=== PATIENT | female | born 1985 | race Caucasian/White ===

== ENCOUNTER 2021-04-08 22:52 | Emergency (ER) | payer OTHER ==
[~2021-04-08] VITALS: Ht 175.3 cm; Wt 81.8 kg
[2021-04-08] MEDS ORDERED: ACETAMINOPHEN 500 MG TABLET PO ONE (23:30)
[2021-04-08] MEDS ORDERED: AMOX TR/POT CLAV 875 MG/125 MG TABLET PO ONE (23:30)
[2021-04-08 23:40] VITALS: BP 127/88
== END 2021-04-09 01:30 | disposition home or self-care (01) ==
LOC: EMS 22:56
DX: K08.89 Other specified disorders of teeth and supporting structures (principal); F17.210 Nicotine dependence, cigarettes, uncomplicated
CPT/HCPCS: 99283

== ENCOUNTER 2021-10-25 04:14 | Emergency (ER) | payer OTHER ==
[~2021-10-25] VITALS: Ht 175.3 cm; Wt 91.0 kg
[2021-10-25] MEDS ORDERED: LIDOCAINE 1%/EPI 1:200,000/PF 30 ML VIAL SQ ONE (04:30)
[2021-10-25] MEDS ORDERED: BACITRACIN 0.9 GM PACKET OINTMENT TP ONE (05:30)
[2021-10-25 05:54] VITALS: BP 140/95
== END 2021-10-25 05:54 | disposition home or self-care (01) ==
LOC: EMS 04:15
DX: S61.411A Laceration without foreign body of right hand, initial encounter (principal); F10.20 Alcohol dependence, uncomplicated; F17.210 Nicotine dependence, cigarettes, uncomplicated; W26.8XXA Contact with other sharp object(s), not elsewhere classified, initial encounter; Y93.89 Activity, other specified; Y92.89 Other specified places as the place of occurrence of the external cause; Y99.8 Other external cause status
CPT/HCPCS: 99282; 12002; J3490

== ENCOUNTER 2021-12-21 23:17 | Emergency (ER) | payer OTHER ==
[~2021-12-21] VITALS: Ht 175.3 cm; Wt 95.5 kg
[2021-12-21 23:18] VITALS: BP 152/99
== END 2021-12-21 23:38 | disposition left against medical advice (07) ==
LOC: EMS 23:18
DX: Z53.21 Procedure and treatment not carried out due to patient leaving prior to being seen by health care provider (principal)

== ENCOUNTER 2022-08-06 16:35 | Emergency (ER) | payer OTHER ==
[~2022-08-06] VITALS: Ht 175.3 cm; Wt 90.9 kg
[2022-08-06] MEDS ORDERED: IBUP-45 PO (16:40)
[2022-08-06] MEDS ORDERED: ONDA-104 PO (16:40)
[2022-08-06 16:41] VITALS: BP 173/106
== END 2022-08-06 18:16 | disposition left against medical advice (07) ==
LOC: EMS 17:05
DX: Z53.21 Procedure and treatment not carried out due to patient leaving prior to being seen by health care provider (principal)
CPT/HCPCS: 99281; Z7502

== ENCOUNTER 2023-01-05 00:03 | Emergency (ER) | payer OTHER ==
[~2023-01-05] VITALS: Ht 175.3 cm; Wt 100.0 kg
[~2023-01-05 00:03] MED LIST: IBUP-45 PO; ONDA-104 PO
[2023-01-05 00:12] VITALS: TEMP 99.3
[2023-01-05 02:39] VITALS: BP 146/96; PULSE 98; RESP 15
[2023-01-05] MEDS ORDERED: ACET-66 PO (20:15)
[2023-01-05] MEDS ORDERED: DOXY-354 PO (20:15)
[2023-01-05] MEDS ORDERED: CEPH-558 PO (20:15)
== END 2023-01-05 04:05 | disposition left against medical advice (07) ==
LOC: EMS 00:03
DX: R30.9 Painful micturition, unspecified (principal); Z53.21 Procedure and treatment not carried out due to patient leaving prior to being seen by health care provider
CPT/HCPCS: 99281; Z7502

== ENCOUNTER 2023-01-05 14:40 | Emergency (ER) | payer OTHER ==
[~2023-01-05] VITALS: Ht 175.3 cm; Wt 90.9 kg
[2023-01-05] MEDS ORDERED: IOHEXOL 9 MG/ML 500 ML BOTTLE PO ONE ×2 (15:15)
[2023-01-05 15:35] LABS: EOSINOPHILS % (AUTO) 1.4 % (1.0-6.0); HEMATOCRIT 41.1 % (36-46); HEMOGLOBIN 13.5 g/dL (12.0-16.0); LYMPHOCYTES # (AUTO) 1.1 K/uL (1.0-4.8); LYMPHOCYTES % (AUTO) 34.4 % (22.0-44.0); MEAN CORPUSCULAR HEMOGLOBIN 31.1 pg (26.0-34.0); MEAN CORPUSCULAR HGB CONC 32.9 G/dL (31.0-37.0); MEAN CORPUSCULAR VOLUME 94 fL (80-100); MONOCYTES # (AUTO) 0.3 K/uL (0.1-1.0); MONOCYTES % (AUTO) 8.6 % (2.0-9.0); NEUTROPHILS # (AUTO) 1.6 K/uL (1.8-7.7); NEUTROPHILS % (AUTO) 53.6 % (40.0-70.0); PLATELET COUNT (AUTO) 231 K/uL (150-450); RED BLOOD CELL COUNT(AUTO) 4.35 MIL/uL (4.00-5.20); RED CELL DISTRIBUTION WIDTH 14.9 % (11.5-14.5); WHITE BLOOD COUNT (AUTO) 3.1 K/uL (4.5-11.0)
[2023-01-05 15:46] LABS: ANION GAP 10 mmol/L (8-16); CALCIUM, TOTAL 8.8 mg/dL (8.8-10.5); CARBON DIOXIDE 25 mmol/L (22-29); CHLORIDE 101 mmol/L (98-107); GLOMERULAR FILTR. RATE CALC > 60 mL/min (>60); GLUCOSE,RANDOM 100 mg/dL (70-110); POTASSIUM 3.4 mmol/L (3.5-5.1); SODIUM SERUM 136 mmol/L (136-145); UREA NITROGEN, BLOOD 8 mg/dL (7-18)
[2023-01-05 15:52] LABS: ALANINE AMINOTRANSFERASE 167 U/L (12-78); ALBUMIN 3.6 g/dL (3.4-5.0); ALKALINE PHOSPHATASE 88 U/L (46-116); ASPARTATE AMINOTRANSFERASE 224 U/L (15-37); BILIRUBIN,TOTAL 0.8 mg/dL (0.1-1.0); TOTAL PROTEIN, SERUM 7.4 g/dL (6.4-8.2)
[2023-01-05] MEDS ORDERED: HYDROmorphone HCL 2 MG/ML SYRINGE IM ONE (16:15)
[2023-01-05] MEDS ORDERED: ONDANSETRON HCL 4 MG/2 ML VIAL IM ONE (16:15)
[2023-01-05 17:14] LABS: PLATELET MORPHOLOGY COMMENT LARGE PLTS PRESENT
[2023-01-05] MEDS ORDERED: CefTRIAXone SODIUM 1 GM/VIAL IM ONE (18:15)
[2023-01-05] MEDS ORDERED: DOXYCYCLINE HYCLATE 100 MG TABLET PO ONE (18:15)
[2023-01-05] MEDS ORDERED: LIDOCAINE/PF 1% 2 ML VIAL IM ONE (18:15)
[2023-01-05] MEDS ORDERED: ONDANSETRON HCL 4 MG/2 ML VIAL IVP ONE (19:45)
[2023-01-05 20:07] VITALS: BP 151/97; PULSE 86; RESP 18; TEMP 98.1
[2023-01-05] MEDS ORDERED: CEPH-558 PO (20:15)
[2023-01-05] MEDS ORDERED: DOXY-354 PO (20:15)
[2023-01-05] MEDS ORDERED: ACET-66 PO (20:15)
== END 2023-01-05 21:04 | disposition home or self-care (01) ==
LOC: EMS 14:40
DX: L03.311 Cellulitis of abdominal wall (principal); R79.89 Other specified abnormal findings of blood chemistry; F17.210 Nicotine dependence, cigarettes, uncomplicated; Z90.49 Acquired absence of other specified parts of digestive tract; Z98.890 Other specified postprocedural states
CPT/HCPCS: 99285; 74176; 96374; 80053; 84703; 85025; 36415; 96372; J0696; J1170; J3490; J2405; Q9967

== ENCOUNTER 2023-05-14 16:40 | Emergency (ER) | payer OTHER ==
[~2023-05-14] VITALS: Ht 175.3 cm; Wt 90.9 kg
[~2023-05-14 16:40] MED LIST changes: +ACET-66 PO; +CEPH-558 PO; +DOXY-354 PO
[2023-05-14 17:02] VITALS: TEMP 97.9
[2023-05-14] MEDS ORDERED: CHLO25CA6 PO (22:47)
[2023-05-14 23:53] LABS: ALCOHOL, URINE DRUG SCREEN NEGATIVE (NEGATIVE); AMPHET/METH SCREEN,URINE POSITIVE (NEGATIVE); BARBITURATE SCREEN, URINE NEGATIVE (NEGATIVE); BENZODIAZEPINES SCREEN,URINE NEGATIVE (NEGATIVE); CANNABINOID SCREEN,URINE NEGATIVE (NEGATIVE); COCAINE SCREEN,URINE NEGATIVE (NEGATIVE); METHADONE SCREEN, URINE NEGATIVE (NEGATIVE); OPIATE SCREEN,URINE NEGATIVE (NEGATIVE); PHENCYCLIDINE SCREEN,URINE NEGATIVE (NEGATIVE)
[2023-05-15] MEDS ORDERED: AmLODIPine BESYLATE 5 MG TABLET PO ONE
[2023-05-15 00:18] LABS: BASOPHILS % (AUTO) 1.2 % (0.0-2.0); EOSINOPHILS % (AUTO) 1.4 % (1.0-6.0); HEMATOCRIT 44.4 % (36-46); HEMOGLOBIN 14.6 g/dL (12.0-16.0); LYMPHOCYTES # (AUTO) 2.3 K/uL (1.0-4.8); LYMPHOCYTES % (AUTO) 30.7 % (22.0-44.0); MEAN CORPUSCULAR HEMOGLOBIN 31.1 pg (26.0-34.0); MEAN CORPUSCULAR HGB CONC 32.9 G/dL (31.0-37.0); MEAN CORPUSCULAR VOLUME 94 fL (80-100); MONOCYTES # (AUTO) 0.4 K/uL (0.1-1.0); MONOCYTES % (AUTO) 5.1 % (2.0-9.0); NEUTROPHILS # (AUTO) 4.6 K/uL (1.8-7.7); NEUTROPHILS % (AUTO) 61.6 % (40.0-70.0); PLATELET COUNT (AUTO) 300 K/uL (150-450); RED CELL DISTRIBUTION WIDTH 13.7 % (11.5-14.5); WHITE BLOOD COUNT (AUTO) 7.5 K/uL (4.5-11.0)
[2023-05-15 00:30] VITALS: BP 140/85; PULSE 91; RESP 16
[2023-05-15 00:30] LABS: ANION GAP 12 mmol/L (8-16); CALCIUM, TOTAL 9.2 mg/dL (8.8-10.5); CARBON DIOXIDE 24 mmol/L (22-29); CHLORIDE 102 mmol/L (98-107); CREATININE 0.79 mg/dL (0.60-1.30); GLOMERULAR FILTR. RATE CALC > 60 mL/min (>60); GLUCOSE,RANDOM 105 mg/dL (70-110); POTASSIUM 3.8 mmol/L (3.5-5.1); SODIUM SERUM 138 mmol/L (136-145); UREA NITROGEN, BLOOD 11 mg/dL (7-18)
[2023-05-15 00:34] LABS: ALANINE AMINOTRANSFERASE 104 U/L (12-78); ALBUMIN 3.8 g/dL (3.4-5.0); ALKALINE PHOSPHATASE 83 U/L (46-116); ASPARTATE AMINOTRANSFERASE 70 U/L (15-37); BILIRUBIN,TOTAL 0.6 mg/dL (0.1-1.0); TOTAL PROTEIN, SERUM 7.4 g/dL (6.4-8.2)
[2023-05-15 00:38] LABS: ALCOHOL, BLOOD (SERUM) < 3 mg/dL (0-10)
[2023-05-15] MEDS ORDERED: CHLO25CA6 PO (01:47)
== END 2023-05-15 01:00 | disposition home or self-care (01) ==
LOC: EMS 17:03
DX: F10.20 Alcohol dependence, uncomplicated (principal); F17.210 Nicotine dependence, cigarettes, uncomplicated; Z98.890 Other specified postprocedural states; Y90.9 Presence of alcohol in blood, level not specified
CPT/HCPCS: 99283; 80053; 85025; 36415; 80307; G0480